=== PATIENT | female | born 1930 | race Caucasian/White ===

== ENCOUNTER 2016-12-25 02:41 | Emergency (ER) | payer MEDICARE, BC ==
--- NOTE | 2016-12-25 03:21 | EDM.PDOC ---
ED HPI HEAD INJURY - General Chief Complaint: Head Injury Stated Complaint: FALL VIA [place] Time Seen by Provider: 12/25/16 03:04 Source: Reports: Patient, Family, RN notes reviewed History Limitations: Reports: Physical impairment - History of Present Illness INITIAL COMMENTS - FREE TEXT/NARRATIVE: 86-year-old female presents emergency department today via EMS services she is a resident of the memory care unit suffers from dementia was found on the floor with a head injury unknown time down unknown event, cannot obtain any reliable review of systems her memory issues - Related Data Allergies/ADRs: Allergies Allergy/AdvReac Type Severity Reaction Status Date / Time latex Allergy Cannot Verified 12/25/16 03:01 Remember pneumococcal vaccine Allergy Cannot Verified 12/25/16 03:01 Remember quinine Allergy Cannot Verified 12/25/16 03:01 Remember zinc Allergy Cannot Verified 12/25/16 03:01 Remember Home Meds: Home Meds Aspirin 81 mg PO DAILY 12/30/15 [History] Calcium Carb/Magnesium Hydrox [Antacid Chewable Tablet] 500 mg PO TID 12/30/15 [ History] Ergocalciferol (Vitamin D2) [Vitamin D] 400 mg PO DAILY 12/30/15 [History] Losartan Potassium [Cozaar] 25 mg PO DAILY 12/30/15 [History] Multivitamin [Multivitamins] 1 tab PO DAILY 12/30/15 [History] Pravastatin Sodium [Pravachol] 20 mg PO QAM 12/30/15 [History] metFORMIN [Glucophage] 850 mg PO BID 12/30/15 [History] Past Medical History HEENT History: Reports: Cataract, Impaired vision Cardiovascular History: Reports: High cholesterol, Hypertension Gastrointestinal History: Reports: Cholelithiasis [employer] History: Reports: Musculoskeletal History: Reports: Arthritis, Fracture Psychiatric History: Reports: Dementia Endocrine/Metabolic History: Reports: Diabetes, type II, Obesity/BMI 30+ - Infectious Disease History Infectious Disease History: Reports: Chicken pox - Past Surgical History HEENT Surgical History: Reports: Cataract surgery Cardiovascular Surgical History: Reports: None GI Surgical History: Reports: Cholecystectomy Endocrine Surgical History: Reports: None Musculoskeletal Surgical History: Reports: None Social & Family History - Tobacco Use Smoking Status *Q: Never Smoker Second Hand Smoke Exposure: No - Caffeine Use Caffeine Use: Reports: Coffee, Tea - Recreational Drug Use Recreational Drug Use: No ED ROS GENERAL - Review of Systems Review Of Systems: Unable To Obtain (Secondary to dementia) ED EXAM, HEAD INJURY - Physical Exam Exam: See Below Text/Narrative:: General: Elderly female alert not in any distress pleasantly confused HEENT: head is laceration occipital region left side normocephalic, eyes pupils equal round reactive to light, sclera clear no conjunctivitis appreciated. Ears blocked by cerumen bilaterally. Nose no septal deviation, nares are clear, no blood present. Mouth mucosa is moist and pink no erythema or exudate noted in soft palate, tongue is midline uvula is midline, dentition is intact. Neck: Supple no thyromegaly no tracheal deviation. There is no tenderness to palpation she has full range of motion of the neck without tenderness Nodes: Cervical nodes subclavicular nodes nontender no palpable lymphadenopathy noted. Lungs: clear to auscultation bilaterally with symmetrical respirations, no adventitious noise appreciated. CV: Regular rate and rhythm S1 and S2 appreciated no murmurs rubs or gallops noted. Abdomen: Soft, nontender, no palpable masses or organomegaly appreciated, no distention no guarding bowel sounds are present,. Neuro: Cranial nerves II through XII grossly intact Skin: Warm and dry, intact Extremities: She has tenderness to palpation over the left ankle and left hip. Course - Vital Signs Last Recorded V/S: Last Vital Signs Temp 97.2 F 12/25/16 04:21 Pulse 93 12/25/16 04:21 Resp 15 12/25/16 04:21 BP 159/65 H 12/25/16 04:21 Pulse Ox 94 L 12/25/16 04:21 - Orders/Labs/Meds Orders: Active Orders 24 hr Category Date Time Status Ankle Min 3V Bi [CR] Stat Exams 12/25/16 03:33 Taken Head wo Cont [CT] Stat Exams 12/25/16 03:15 Taken Hip Min 2V Bi [CR] Stat Exams 12/25/16 03:33 Taken Labs: Laboratory Tests 12/25/16 12/25/16 12/25/16 Range/Units 03:15 03:17 04:21 WBC (4.5-11.0) K/uL RBC (3.30-5.50) M/uL Hgb (12.0-15.0) g/dL Hct (36.0-48.0) % MCV (80-98) fL MCH (27-31) pg MCHC (32-36) % Plt Count (150-400) K/uL Neut % (Auto) (36-66) % Lymph % (Auto) (24-44) % [place] % (Auto) (2-6) % Eos % (Auto) (2-4) % Baso % (Auto) (0-1) % Sodium 138 L (140-148) mmol/L Potassium 4.9 (3.6-5.2) mmol/L Chloride 102 (100-108) mmol/L Carbon Dioxide 27 (21-32) mmol/L Anion Gap 13.9 (5.0-14.0) mmol/L BUN 24 H (7-18) mg/dL Creatinine 1.0 (0.6-1.0) mg/dL Est Cr Clr Drug Dosing 29.01 mL/min Estimated GFR (MDRD) 53 L (>60) Glucose 192 H (74-106) mg/dL Calcium 9.4 (8.5-10.1) mg/dL Total Bilirubin 0.4 (0.2-1.0) mg/dL AST 25 (15-37) U/L ALT 26 (12-78) U/L Alkaline Phosphatase 80 (46-116) U/L Creatine Kinase 66 (26-192) U/L Total Protein 7.7 (6.4-8.2) g/dL Albumin 3.5 (3.4-5.0) g/dL Globulin 4.2 H (2.3-3.5) g/dL Albumin/Globulin Ratio 0.8 L (1.2-2.2) Urine Color Yellow Urine Appearance Slightly cloudy Urine pH 6.5 (4.5-8.0) Ur Specific [place] 1.005 L (1.008-1.030) Urine Protein Negative (NEGATIVE) mg/dL Urine Glucose (UA) 100 H (NEGATIVE) mg/dL Urine Ketones Negative (NEGATIVE) mg/dL Urine Occult Blood Moderate (NEGATIVE) Urine Nitrite Negative (NEGATIVE) Urine Bilirubin Negative (NEGATIVE) Urine Urobilinogen Normal (NORMAL) mg/dL Ur Leukocyte Esterase Large (NEGATIVE) Urine RBC 0-5 (0-5) Urine WBC 10-20 H (0-5) Ur Epithelial Cells Moderate Amorphous Sediment Not seen Urine Bacteria Many Urine Mucus Not seen 05/08/17 Range/Units 04:29 WBC 8.0 (4.5-11.0) K/uL RBC 3.99 (3.30-5.50) M/uL Hgb 12.2 (12.0-15.0) g/dL Hct 36.7 (36.0-48.0) % MCV 92 (80-98) fL MCH 31 (27-31) pg MCHC 33 (32-36) % Plt Count 265 (150-400) K/uL Neut % (Auto) 57 (36-66) % Lymph % (Auto) 27 (24-44) % [place] % (Auto) 10 H (2-6) % Eos % (Auto) 5 H (2-4) % Baso % (Auto) 1 (0-1) % Sodium (140-148) mmol/L Potassium (3.6-5.2) mmol/L Chloride (100-108) mmol/L Carbon Dioxide (21-32) mmol/L Anion Gap (5.0-14.0) mmol/L BUN (7-18) mg/dL Creatinine (0.6-1.0) mg/dL Est Cr Clr Drug Dosing mL/min Estimated GFR (MDRD) (>60) Glucose (74-106) mg/dL Calcium (8.5-10.1) mg/dL Total Bilirubin (0.2-1.0) mg/dL AST (15-37) U/L ALT (12-78) U/L Alkaline Phosphatase (46-116) U/L Creatine Kinase (26-192) U/L Total Protein (6.4-8.2) g/dL Albumin (3.4-5.0) g/dL Globulin (2.3-3.5) g/dL Albumin/Globulin Ratio (1.2-2.2) Urine Color Urine Appearance Urine pH (4.5-8.0) Ur Specific [place] (1.008-1.030) Urine Protein (NEGATIVE) mg/dL Urine Glucose (UA) (NEGATIVE) mg/dL Urine Ketones (NEGATIVE) mg/dL Urine Occult Blood (NEGATIVE) Urine Nitrite (NEGATIVE) Urine Bilirubin (NEGATIVE) Urine Urobilinogen (NORMAL) mg/dL Ur Leukocyte Esterase (NEGATIVE) Urine RBC (0-5) Urine WBC (0-5) Ur Epithelial Cells Amorphous Sediment Urine Bacteria Urine Mucus Departure - Departure Time of Disposition: 05:50 Disposition: Home, Self-Care 01 Condition: good Clinical Impression: Head injury Qualifiers: Encounter type: initial encounter Qualified Code(s): S09.90XA - Unspecified injury of head, initial encounter Forms: ED Department Discharge Additional Instructions: Use hydrocodone as needed for pain control, use Robitussin a.c. as needed to help suppress cough symptoms, Please followup with your primary care provider in 3-5 days if not better, please call return to the emergency department with worsening of symptoms. Follow wound care instruction sheet with removal of staple in 10 days - My Orders Last 24 Hours: My Active Orders 12/25/16 03:15 Head wo Cont [CT] Stat 12/25/16 03:33 Ankle Min 3V Bi [CR] Stat Hip Min 2V Bi [CR] Stat - Assessment/Plan Last 24 Hours: My Active Orders 12/25/16 03:15 Head wo Cont [CT] Stat 12/25/16 03:33 Ankle Min 3V Bi [CR] Stat Hip Min 2V Bi [CR] Stat Plan: Assessment Acuity = acute Site and laterality = head injury complicating a patient with known history of dementia half centimeter laceration back of scalp status post repair Etiology = secondary to fall Manifestations = none Location of injury = home Lab values = CBC, CMP within normal limits urinalysis is suspicious for urinary tract infection with 5-10 WBCs consistent with pyuria cultures pending, head CT was negative Plan Elected to do watchful waiting for the culture results to determine if antibiotics are needed, total #10 hydrocodone written for pain control, Robitussin-AC written for symptomatic relief of the cough, followup with primary care 3-5 days for reevaluation Patient was in agreement with the plan all questions were answered, they were instructed to return to the emergency department or call for worsening symptoms. This note was dictated using [employer] voice recognition software please call with any questions.
[2016-12-25 06:23] VITALS: BP 177/86
--- NOTE | 2016-12-25 11:35 | CR ---
Bilateral ankles There is diffuse demineralization. There are degenerative findings of the ankles bilaterally. There is degenerative spurring both medially and laterally. There is no evidence of acute fracture. Impression: 1. No acute findings.
--- NOTE | 2016-12-25 11:36 | CR ---
Bilateral hips There is normal alignment. There is no evidence for fracture. The soft tissues are unremarkable. Impression: 1. No acute findings of the hips. If there are significant persisting symptoms on either side MRI wo uld be useful for further evaluation.
== END 2016-12-25 06:20 | disposition home or self-care (01) ==
LOC: JP.ED 02:41
DX: S09.90XA Unspecified injury of head, initial encounter (principal); F03.90 Unspecified dementia, unspecified severity, without behavioral disturbance, psychotic disturbance, mood disturbance, and anxiety; I10 Essential (primary) hypertension; E78.00 Pure hypercholesterolemia, unspecified; E11.9 Type 2 diabetes mellitus without complications; E66.9 Obesity, unspecified; Z68.26 Body mass index [BMI] 26.0-26.9, adult; Z98.49 Cataract extraction status, unspecified eye; Z90.49 Acquired absence of other specified parts of digestive tract; Z79.82 Long term (current) use of aspirin; Z79.899 Other long term (current) drug therapy; Z88.8 Allergy status to other drugs, medicaments and biological substances; Z91.040 Latex allergy status
CPT/HCPCS: 36415; 70450; 73521; 73521-26; 73610-50; 736105026; 80053; 81001; 82550; 85025; 99283; 99285-25